=== PATIENT | male | born 1985 | race Caucasian/White ===

== ENCOUNTER 2016-12-16 02:51 | Emergency (ER) | payer OTHER ==
[~2016-12-16] VITALS: Ht 172.7 cm; Wt 100.0 kg
[2016-12-16 02:53] VITALS: Ht 172.7 cm; Wt 100.0 kg
[2016-12-16] MEDS ORDERED: LIDOCAINE 1% (MDV) 20 ML INJ SC ONE (05:00)
[2016-12-16] MEDS ORDERED: DIPHTH/TET/ACEL PERTUSS (ADULT) 0.5 ML VIAL IM* ONE (05:00)
--- NOTE | 2016-12-16 05:29 | ERD ---
ER Documentation Chief Complaint Date/Time DATE: 12/16/16 TIME: 05:26 Chief Complaint c/o right hand laceration. Cut with knife @ work 1 hr ago. HPI 31-year-old male presents to emergency department for complaints of right hand laceration wound after accidentally cutting it with a knife 1 hour prior to arrival. Patient describes the pain as sharp pain, 6/10 scale, worse upon touching the area. Patient denies any foreign body on affected area. Patient denies any numbness or tingling. Patient did not take any medications for pain. ROS All systems reviewed and are negative except as per history of present illness. Medications Home Meds Reported Medications [none] Unknown Strength No Conflict Check 12/16/16 Allergies Allergies: Coded Allergies: No Known Allergy (Unverified , 12/16/16) PMhx/Soc Medical and Surgical Hx: pt denies Medical Hx, pt denies Surgical Hx Hx Alcohol Use: No Hx Substance Use: No Hx Tobacco Use: Yes Smoking Status: Current some day smoker FmHx Family History: No coronary disease, No diabetes, No other Physical Exam Vitals Vital Signs Date Time Temp Pulse Resp B/P Pulse Ox O2 Delivery O2 Flow Rate FiO2 12/16/16 02:53 96.8 100 20 147/83 98 Physical Exam GENERAL: The patient is well developed and appropriate for usual state of health, in no apparent distress. CHEST: Clear to auscultation bilaterally. There are no rales, wheezes or rhonchi. HEART: Regular rate and rhythm. No murmurs, clicks, rubs or gallops. No S3 or S4. ABDOMEN: Soft, nontender and nondistended. Good bowel sounds. No rebound or guarding. No gross peritonitis. No gross organomegaly or masses. No Nelson sign or McBurney point tenderness. BACK: No midline or flank tenderness. EXTREMITIES: Equal pulses bilaterally. There is no peripheral clubbing, cyanosis or edema. No focal swelling or erythema. Full range of motion. Grossly neurovascularly intact. NEURO: Alert and oriented. Cranial nerves 2-12 intact. Motor strength in all 4 extremities with 5/5 strength. Sensation grossly intact. Normal speech and gait. SKIN: Good 1.5 cm laceration wound in the webspace of the right thumb and index finger. No foreign body. There is no apparent rash or petechia. The skin is warm and dry. HEMATOLOGIC AND LYMPHATIC: There is no evidence of excessive bruising or lymphedema. No gross cervical, axillary, or inguinal lymphadenopathy. Results 24 hrs Current Medications Medications (Trade) Dose Ordered Sig/Chemo Route PRN Reason Start Time Stop Time Status Last Admin Dose Admin Diphtheria/ Tetanus/Acell Pertussis (Adacel) 0.5 ml ONCE ONCE IM* 12/16/16 05:00 12/16/16 05:01 DC 12/16/16 05:25 Lidocaine (Xylocaine 1% (Mdv) 20 ml) 2 ml ONCE ONCE SC 12/16/16 05:00 12/16/16 05:01 DC Tdap was given to prevent tetanus. Patient tolerated medication well. Procedures/MDM Procedure Note: After obtaining informed consent, the wound was irrigated with 250 ml of normal saline and cleaned with diluted betadine. Using aseptic technique, 3 ml of 1% lidocaine was injected on the subcutaneous tissue of the laceration wound for anesthetic. After the anesthetic, the wound was approximated using 1 interrupted sutures of 5-0 Ethilon. After the procedure, the wound was well approximated. Patient tolerated procedure well. Bacitracin was applied on the area and a dry dressing. Medical Decision Making: Patient's pain is most likely consistent w/ the laceration wound in the hand. There is no suspicion for neurovascular compromise. Patient has intact sensation and circulation of the affected extremity. There is low suspicion for septic arthritis. Patient does not have any fever. Disposition: Home. Patient is given prescription for ibuprofen for pain, keflex to prevent infection. Patient was advised to elevate the affected area and apply ice on affected area. Patient was advised that if symptoms are worse, numbness, tingling, high fever, unable to move joint, worsening symptoms, to return to emergency department immediately. Otherwise, patient is advised to follow up with the primary care doctor in 2 days wound check, suture removal in 7-10 days Disclaimer: Inadvertent spelling and grammatical errors are likely due to EHR/ dictation software use and do not reflect on the overall quality of patient care. Also, please note that the electronic time recorded on this note does not necessarily reflect the actual time of the patient encounter. Departure Diagnosis: Primary Impression: Hand laceration Encounter type: initial encounter Foreign body presence: without foreign body Laterality: left Qualified Code: S61.412A - Laceration of left hand without foreign body, initial encounter Condition: Stable Patient Instructions: Laceration, Hand Additional Instructions: Patient is given prescription for ibuprofen for pain. Patient was advised to elevate the affected area and apply ice on affected area. Patient was advised that if symptoms are worse, numbness, tingling, high fever, unable to move joint , worsening symptoms, to return to emergency department immediately. Otherwise, patient is advised to follow up with the primary care doctor in 2 days wound check, suture removal in 7-10 days DILLAN WATERS NP Dec 16, 2016 05:29
[2016-12-16] MEDS ORDERED: CEPH-443 PO (05:43)
[2016-12-16] MEDS ORDERED: IBUP-1542 PO (05:43)
== END 2016-12-16 05:58 | disposition home or self-care (01) ==
LOC: FTE 02:51
DX: S61.411A Laceration without foreign body of right hand, initial encounter (principal); F17.210 Nicotine dependence, cigarettes, uncomplicated; W29.1XXA Contact with electric knife, initial encounter; Y92.89 Other specified places as the place of occurrence of the external cause; Z23 Encounter for immunization
CPT/HCPCS: 12001; 90471; 90715; Z7502; Z7610

== ENCOUNTER 2016-12-18 11:45 | Emergency (ER) | payer OTHER ==
[~2016-12-18] VITALS: Ht 167.6 cm; Wt 106.5 kg
[~2016-12-18 11:45] MED LIST: CEPH-443 PO; IBUP-1542 PO
[2016-12-18 11:48] VITALS: Ht 167.6 cm; Wt 106.5 kg
--- NOTE | 2016-12-18 13:08 | ERD ---
ER Documentation Chief Complaint Chief Complaint Patient here for a wound recheck HPI 31-year-old male comes in for wound check from a laceration repair that was done approximately 2 days ago from here. The patient had a work injury where a knife and cut him between the webspace of his right thumb and index finger he is right-hand dominant. He has not had any drainage, redness. He has no difficulty with movement of his hand or fingers. ROS All systems reviewed and are negative except as per history of present illness. Medications Home Meds Active Scripts Cephalexin* (Keflex*) 500 Mg Capsule, 500 MG PO QID for 5 Days, CAP Prov:DILLAN WATERS NP 12/16/16 Ibuprofen* (Motrin*) 600 Mg Tab, 600 MG PO Q6H Y for PAIN AND OR ELEVATED TEMP, #30 TAB Prov:DILLAN WATERS NP 12/16/16 Reported Medications [none] Unknown Strength No Conflict Check 12/16/16 Allergies Allergies: Coded Allergies: No Known Allergy (Unverified , 12/16/16) PMhx/Soc Hx Alcohol Use: No Hx Substance Use: No Hx Tobacco Use: Yes Physical Exam Vitals Vital Signs Date Time Temp Pulse Resp B/P Pulse Ox O2 Delivery O2 Flow Rate FiO2 12/18/16 11:48 97.7 85 20 137/50 97 Physical Exam General: Well-developed, well-nourished. The patient appears in no acute distress. HEENT: Head is normocephalic, atraumatic. No scleral icterus. Neck: Supple. Nontender. Lungs: Clear to auscultation. Normal air movement. Heart: Regular rate and rhythm. S1 and S2 are normal. No murmurs, gallops, or rubs. Abdomen: Nondistended Extremities: 1 cm laceration in the webspace right hand thumb and index finger that is clean dry and intact. There is one simple interrupted suture. Neurologic: Alert and oriented 3. No focal deficits. Skin: Normal turgor. No rash or lesions. Procedures/MDM Wound shows no evidence of infection, foreign body, neurologic injury, vascular injury, open joint or tendon laceration. Patient appropriate for outpatient follow up. Departure Diagnosis: Primary Impression: Suture check Condition: Good Patient Instructions: Wound Check, Lac F/U (No Infection) PETROS ZARAGOZA PA-C Dec 18, 2016 13:08
[2016-12-18 14:41] VITALS: BP 137/50; RESP 20
== END 2016-12-18 14:44 | disposition home or self-care (01) ==
LOC: FTE 11:45
DX: Z48.01 Encounter for change or removal of surgical wound dressing (principal); Z87.891 Personal history of nicotine dependence
CPT/HCPCS: 99281

== ENCOUNTER 2016-12-23 05:33 | Emergency (ER) | payer OTHER ==
[~2016-12-23] VITALS: Ht 172.7 cm; Wt 103.5 kg
[2016-12-23 05:35] VITALS: Ht 172.7 cm; Wt 103.5 kg
--- NOTE | 2016-12-23 06:37 | ERD ---
ER Documentation Chief Complaint Chief Complaint came back x stitch removal from web of R hand HPI This is a 31-year-old male presenting to emergency department for suture removal. Patient had one suture placed to inner webbing of first and second digit on right hand on 12/16/2016. Patient denies any drainage or redness. No bleeding. No fevers or chills. No pain. ROS All systems reviewed and are negative except as per history of present illness. Medications Home Meds Active Scripts Cephalexin* (Keflex*) 500 Mg Capsule, 500 MG PO QID for 5 Days, CAP Prov:DILLAN WATERS NP 12/16/16 Ibuprofen* (Motrin*) 600 Mg Tab, 600 MG PO Q6H Y for PAIN AND OR ELEVATED TEMP, #30 TAB Prov:DILLAN WATERS [employer] 12/16/16 Reported Medications [none] Unknown Strength No Conflict Check 12/16/16 Allergies Allergies: Coded Allergies: No Known Allergy (Unverified , 12/16/16) PMhx/Soc Medical and Surgical Hx: pt denies Medical Hx, pt denies Surgical Hx Hx Alcohol Use: No Hx Substance Use: No Hx Tobacco Use: Yes Smoking Status: Current some day smoker Physical Exam Vitals Vital Signs Date Time Temp Pulse Resp B/P Pulse Ox O2 Delivery O2 Flow Rate FiO2 12/23/16 05:35 96.3 92 18 130/71 98 Physical Exam Const: Alert, no acute distress Head: Atraumatic Eyes: Normal Conjunctiva ENT: Normal External Ears, Nose and Mouth. Skin: [address] to inner webbing of first and second digit on right hand. No drainage, redness, warmth or induration. No lymphatic streaking. Neur: Awake and alert Psych: Normal Mood and Affect Procedures/MDM MDM: This is a 31-year-old male presenting to emerge department for suture removal . There are no signs or symptoms of infection. patient is afebrile vital signs are stable. Patient is alert and not ill-appearing. Suture Removal by me: Verbal consent obtained by me 1 Suture removed with tweezers and scissors without incident. Wound shows no evidence of infection, foreign body, neurologic injury, vascular injury, open joint or tendon laceration. Patient to follow up PRN. Return to ED for any high fever, chest pain, difficulty breathing, shortness breath, wheezing, vomiting, diarrhea, abdominal pain or any new or worsening symptoms. Patient verbalizes understanding. All questions answered at discharge. Disclaimer: Inadvertent spelling and grammatical errors are likely due to EHR/ dictation software use and do not reflect on the overall quality of patient care. Also, please note that the electronic time recorded on this note does not necessarily reflect the actual time of the patient encounter. Departure Diagnosis: Primary Impression: Encounter for removal of sutures Condition: Stable Patient Instructions: Suture Removal, No Complication Referrals: [facility] YOU HAVE RECEIVED A MEDICAL SCREENING EXAM AND THE RESULTS INDICATE THAT YOU DO NOT HAVE A CONDITION THAT REQUIRES URGENT TREATMENT IN THE EMERGENCY DEPARTMENT. FURTHER EVALUATION AND TREATMENT OF YOUR CONDITION CAN WAIT UNTIL YOU ARE SEEN IN YOUR DOCTORS OFFICE WITHIN THE NEXT 1-2 DAYS. IT IS YOUR RESPONSIBILITY TO MAKE AN APPOINTMENT FOR FOLOW-UP CARE. IF YOU HAVE A PRIMARY DOCTOR --you should call your primary doctor and schedule an appointment IF YOU DO NOT HAVE A PRIMARY DOCTOR YOU CAN CALL OUR PHYSICIAN REFERRAL HOTLINE AT IF YOU CAN NOT AFFORD TO SEE A PHYSICIAN YOU CAN CHOSE FROM THE FOLLOWING [facility] [address] [facility]. [facility] [address] [facility]. [facility] [address] [facility] [facility] [address] [facility]. [facility] [address] [facility]. [facility]. [address] [facility] YOU HAVE RECEIVED A MEDICAL SCREENING EXAM AND THE RESULTS INDICATE THAT YOU DO NOT HAVE A CONDITION THAT REQUIRES URGENT TREATMENT IN THE EMERGENCY DEPARTMENT. FURTHER EVALUATION AND TREATMENT OF YOUR CONDITION CAN WAIT UNTIL YOU ARE SEEN IN YOUR DOCTORS OFFICE WITHIN THE NEXT 1-2 DAYS. IT IS YOUR RESPONSIBILITY TO MAKE AN APPOINTMENT FOR FOLOW-UP CARE. IF YOU HAVE A PRIMARY DOCTOR --you should call your primary doctor and schedule and appointment IF YOU DO NOT HAVE A PRIMARY DOCTOR YOU CAN CALL OUR PHYSICIAN REFERRAL HOTLINE AT . IF YOU CAN NOT AFFORD TO SEE A PHYSICIAN YOU CAN CHOSE FROM THE FOLLOWING [facility] INSTITUTIONS: [facility] [address] [place] [address] [facility] [address] [place] [address] [facility] + [facility] [address] [place] [address] Additional Instructions: Call your primary care doctor TOMORROW for an appointment during the next 2-3 days.See the doctor sooner or return here if your condition worsens before your appointment time. Return to ED for any high fever, chest pain, difficulty breathing, shortness breath, wheezing, vomiting, diarrhea, abdominal pain or any new or worsening symptoms. MAYELA CERDA NP Dec 23, 2016 06:37
== END 2016-12-23 06:38 | disposition home or self-care (01) ==
LOC: FTE 05:33
DX: Z48.02 Encounter for removal of sutures (principal); F17.210 Nicotine dependence, cigarettes, uncomplicated
CPT/HCPCS: 99281